=== PATIENT | female | born 1965 | race Caucasian/White ===

== ENCOUNTER 2018-11-20 21:15 | Emergency (ER) | payer OTHER ==
[~2018-11-20] VITALS: Ht 167.6 cm; Wt 99.3 kg
[2018-11-20] MEDS ORDERED: ASA81 MG (21:43)
== END 2018-11-20 23:35 | disposition home or self-care (01) ==
LOC: ER 21:15
DX: I16.0 Hypertensive urgency (principal); I10 Essential (primary) hypertension